=== PATIENT | male | born 1995 ===

== ENCOUNTER 2021-08-17 15:21 | Emergency (ER) | payer OTHER, SELFPAY ==
[2021-08-17 15:36] VITALS: BP 140/86; PULSE 77; RESP 14; TEMP 36.4; O2SAT 97
--- NOTE | 2021-08-17 15:41 | ED.WOUNDLAC ---
HPI - Wound/Laceration <Valerio Jiménez PA-C - Last Filed: 08/17/21 16:59> General Chief Complaint: Wound/Laceration Stated Complaint: Left Hand Laceration Time Seen by Provider: 08/17/21 15:40 Source: patient Mode of arrival: Ambulatory History of Present Illness HPI narrative: Patient is a 26-year-old male who presents to the ED for re-evaluation of left hand laceration. He states that today the left hand became more swollen and more painful and discolored and he was concerned about infection. He states that the wound happened a week ago. Patient denies any fever chills nausea vomiting or diarrhea Related Data Allergies Allergy/AdvReac Type Severity Reaction Status Date / Time No Known Drug Allergies Allergy Verified 08/17/21 15:36 Review of Systems <Valerio Jiménez PA-C - Last Filed: 08/17/21 16:59> Review of Systems ROS Unobtainable: All systems reviewed & are unremarkable except as noted in HPI and below Constitutional Constitutional: Denies chills, Denies fatigue, Denies fever(s), Denies frequent falls, Denies lethargy and Denies weakness Eyes Eyes: Denies change in vision, Denies eye discharge, Denies irritation and Denies loss of vision ENT Ears, Nose, Mouth, and Throat: Denies change in voice, Denies dizziness, Denies neck pain, Denies sore throat and Denies throat swelling Cardiovascular Cardiovascular: Denies chest pain, Denies irregular heart rhythm, Denies lightheadedness, Denies palpitations, Denies dyspnea, Denies dyspnea on exertion and Denies orthopnea Respiratory Respiratory: Denies cough, Denies dyspnea, Denies dyspnea on exertion and Denies wheezing Gastrointestinal Gastrointestinal: Denies abdominal pain, Denies change in bowel habits, Denies diarrhea, Denies nausea and Denies vomiting Genitourinary Genitourinary: Denies hematuria, Denies flank pain, Denies urinary incontinence and Denies urinary urgency Musculoskeletal Musculoskeletal: Denies back pain, Denies muscle weakness, Denies neck pain, Denies numbness and Denies tingling Integumentary/Breasts Skin/Breast: Denies pruritus, Denies erythema, Denies rash and Reports wounds Neurologic Neurologic: Denies behavioral changes, Denies confusion, Denies dizziness, Denies frequent falls, Denies loss of vision, Denies numbness, Denies tingling and Denies weakness Psychiatric Psychiatric: Denies anxiety, Denies behavioral changes, Denies confusion, Denies depression, Denies homicidal ideation and Denies suicidal ideation Endocrine Endocrine: Denies fatigue, Denies flushing and Denies palpitations Hematologic/Lymphatic Hematologic/Lymphatic: Denies easy bruising Allergic/Immunologic Allergic/Immunologic: Denies urticaria, Denies throat swelling and Denies wheezing Patient History <Valerio Jiménez PA-C - Last Filed: 08/17/21 16:59> Social History Smoking Status: Unknown if ever smoked Smoking Status: Unknown if ever smoked alcohol intake frequency: holidays/special occasions only Substance Use Type: does not use Exam <Valerio Jiménez PA-C - Last Filed: 08/17/21 16:59> Initial Vital Signs Initial Vital Signs: Vital Signs Temperature 97.5 F L 08/17/21 15:36 Pulse Rate 77 08/17/21 15:36 Respiratory Rate 14 08/17/21 15:36 Blood Pressure 140/86 08/17/21 15:36 Pulse Oximetry 97 08/17/21 15:36 <Isaias Lozada DO - Last Filed: 08/19/21 07:06> Initial Vital Signs Initial Vital Signs: Vital Signs Temperature 97.5 F L 08/17/21 15:36 Pulse Rate 77 08/17/21 15:36 Respiratory Rate 14 08/17/21 15:36 Blood Pressure 140/86 08/17/21 15:36 Pulse Oximetry 97 08/17/21 15:36 Course <Valerio Jiménez PA-C - Last Filed: 08/17/21 16:59> Orders Ordered: ED Orders 08/17/21 16:05 XR hand LT min 3V Stat Vital Signs Vital signs: Vital Signs - 8 hr 08/17/21 15:36 Temperature 97.5 F L Pulse Rate 77 Respiratory Rate 14 Blood Pressure 140/86 Pulse Oximetry 97 <Isaias Lozada DO - Last Filed: 08/19/21 07:06> Orders Ordered: ED Orders 08/17/21 16:05 XR hand LT min 3V Stat Vital Signs Vital signs: Vital Signs - 8 hr 08/17/21 15:36 Temperature 97.5 F L Pulse Rate 77 Respiratory Rate 14 Blood Pressure 140/86 Pulse Oximetry 97 MDM - Wound/Laceration <Valerio Jiménez PA-C - Last Filed: 08/17/21 16:59> Differential Diagnosis Differential diagnosis: Likely other Imaging Data Extremity x-ray #1: Radiologist's Impression: PROCEDURE:? XR HAND LT MIN 3V ? INDICATIONS:? r/o infection ? TECHNIQUE:? Three views of the hand acquired.? ? COMPARISON:? None. ? FINDINGS:? ? Bones:? No acute fractures or dislocations.? Carpal bones are normally aligned.? No suspicious bony lesions.? No focal cortical destruction is seen. ? Soft tissues:? No suspicious soft tissue calcifications.? Soft tissue edema is seen at the dorsum of the hand. ? ? IMPRESSION:? No acute osseous abnormality.? No radiographic signs of osteomyelitis.? Nonspecific soft tissue edema is seen at the dorsum of the hand. If the symptoms persist, consider cross sectional imaging such as MRI or CT for further assessment. ? ? Dictated by: Pal Stephens M.D. on 08/17/2021 at 16:27 ? ? Approved by: Pal Stephens M.D. on 08/17/2021 at 16:28?? MDM Narrative Medical decision making narrative: Patient was evaluated today for possible infection due to increased swelling from a laceration approximately 1 week ago. He states that his hand started swelling last couple days no significant amounts of pain reported. No drainage or fever or redness reported. Laceration was scabbed over had a linear laceration of proximally a.m. 3 cm long that looked closed no evidence of drainage. X-ray does not show any signs of osteomyelitis or any infection as result patient will be discharged home. Discharge Plan Departure Patient Disposition: Home Clinical Impression: Laceration Instructions: DI for Laceration Repair Activity Restrictions/Additional Instructions: You can apply a compressive wrap elevate for any of the swelling. Return to the ED for any further concerns. Stand Alone Forms: Work Release Note <Isaias Lozada DO - Last Filed: 08/19/21 07:06> [facility] ED Attending Shahid Attestation: I was immediately available in the department for consultation. This documentation has been reviewed and I agree with assessment and plan. Supervised by Isaias Lozada DO
--- NOTE | 2021-08-17 16:05 | DI.RAD.S_ITS ---
PROCEDURE: XR HAND LT MIN 3V INDICATIONS: r/o infection TECHNIQUE: Three views of the hand acquired. COMPARISON: None. FINDINGS: Bones: No acute fractures or dislocations. Carpal bones are normally aligned. No suspicious bony lesions. No focal cortical destruction is seen. Soft tissues: No suspicious soft tissue calcifications. Soft tissue edema is seen at the dorsum of the hand. IMPRESSION: No acute osseous abnormality. No radiographic signs of osteomyelitis. Nonspecific soft tissue edema is seen at the dorsum of the hand. If the symptoms persist, consider cross sectional imaging such as MRI or CT for further assessment. Dictated by: Pal Stephens M.D. on 08/17/2021 at 16:27 Approved by: Pal Stephens M.D. on 08/17/2021 at 16:28
== END 2021-08-17 17:15 | disposition home or self-care (01) ==
PROVIDERS: Emergency Provider Physician Assistant
DX: S61.412A Laceration without foreign body of left hand, initial encounter (principal); X58.XXXA Exposure to other specified factors, initial encounter; R22.32 Localized swelling, mass and lump, left upper limb
CPT/HCPCS: 73130; 99281; 99283